=== PATIENT | male | born 1945 | race Caucasian/White ===

== ENCOUNTER → 2018-10-05 10:05 | Outpatient (CLI) | payer OTHER, SELFPAY ==
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
== END ==
PROVIDERS: Visit Provider Physician Assistant
DX: M79.661 Pain in right lower leg (principal)
CPT/HCPCS: 73590

== ENCOUNTER → 2019-03-11 15:50 | Outpatient (CLI) | payer OTHER, SELFPAY ==
[2019-03-11 16:33] LABS: Add Manual Diff / Slide Review NO; Basophils Absolute Auto 0 /uL (0-100); Basophils Percent Auto 0.9 % (0-2); Eosinophils Absolute Auto 200 /uL (0-450); Eosinophils Percent Auto 4.4 % (2-4); Hematocrit 44.2 % (41-53); Hemoglobin 15.2 g/dL (13.5-17.5); Lymphocytes Absolute Auto 1200 /uL (1100-4500); Lymphocytes Percent Auto 22.9 % (25-40); Mean Corpuscular HGB Conc 34.4 % (30-36); Mean Corpuscular Hemoglobin 30.8 PG (26-34); Mean Corpuscular Volume 89.6 fL (80-100); Monocytes Absolute Auto 500 /uL (0-900); Monocytes Percent Auto 10.2 % (3-14); Neutrophils Absolute Auto 3100 /uL (1500-7000); Neutrophils Percent Auto 61.6 % (50-75); Platelet Count 181 X10^3/uL (150-400); Red Blood Cell Count 4.93 X10^6/uL (4.5-5.9); Red Cell Distribution Width 14.7 % (11.6-14.8); White Blood Cell Count 5.1 X10^3/uL (4.5-11.0)
[2019-03-11 17:21] LABS: Alanine Aminotransferase 28 IU/L (21-72); Albumin 3.9 g/dL (3.5-5.0); Albumin Globulin Ratio 1.6 (1.0-2.8); Alkaline Phosphatase 48 U/L (38-126); Aspartate Aminotransferase 24 IU/L (17-59); BUN Creatinine Ratio 18.9 (6-22); Bilirubin Total 0.7 mg/dL (0.2-1.3); Blood Urea Nitrogen 17 mg/dL (9-20); Calcium 9.5 mg/dL (8.4-10.2); Carbon Dioxide 30 mmol/L (22-32); Chloride 101 mmol/L (98-107); Estimated Glomerular Filt Rate > 60.0 mL/min (>60); Globulin 2.5 g/dL (1.7-4.1); Glucose 94 mg/dL (80-110); HEMOLYSIS < 15 (0-50); Sodium 137 mmol/L (137-145); Total Protein 6.4 g/dL (6.3-8.2)
[2019-03-11 17:40] LABS: Free T4, Direct Thyroxine 0.94 ng/dL (0.78-2.19)
[2019-03-11 17:51] LABS: Prostate Specific Antigen 3.78 ng/mL (0.10-4.00)
[2019-03-11 17:53] LABS: Thyroid Stimulating Hormone 3.97 uIU/mL (0.47-4.68)
[2019-03-13 16:13] LABS: Triiodothyronine T3 Total 101 ng/dL (76-181)
== END ==
PROVIDERS: PCP Internal Medicine; Visit Provider Internal Medicine
DX: R97.20 Elevated prostate specific antigen [PSA] (principal); K22.719 Barrett's esophagus with dysplasia, unspecified; R53.83 Other fatigue
CPT/HCPCS: 36415; 80053; 84153; 84439; 84443; 84480; 85025

== ENCOUNTER → 2020-08-23 11:11 | Outpatient (CLI) | payer OTHER, SELFPAY ==
--- NOTE | 2020-08-23 11:14 | DI.RAD.S_ITS ---
PROCEDURE: XR WRIST RT MIN 3V INDICATIONS: WRIST PAIN TECHNIQUE: 4 views of the wrist were acquired. COMPARISON: None. FINDINGS: Bones: No fractures or dislocations. No suspicious bony lesions. Polyarticular joint space narrowing with periarticular osteophytosis, most notably and severe with [id number] contact involving the lateral aspect of the radiocarpal joint. There is mild prominence of the scapholunate interval. Scaphoid view: Intact scaphoid. Soft tissues: No suspicious soft tissue calcifications. IMPRESSION: 1. Joint degeneration, severe involving the lateral radiocarpal joint. 2. Mild prominence of the scapholunate interval and ligamentous injury cannot be excluded. If indicated, MRI could be performed. Dictated by: Solo ZENDEJAS Interpreted: Radha Gaspar MD on 08/23/2020 at 12:26 Approved by: Radha Gaspar M.D. on 08/23/2020 at 15:40
== END ==
PROVIDERS: PCP Family Medicine; Referring Provider Family Medicine; Visit Provider Family Medicine
DX: M25.531 Pain in right wrist (principal); R35.0 Frequency of micturition; Z00.01 Encounter for general adult medical examination with abnormal findings; M19.031 Primary osteoarthritis, right wrist
CPT/HCPCS: 73110

== ENCOUNTER → 2020-08-25 07:08 | Outpatient (CLI) | payer OTHER, SELFPAY ==
[2020-08-25 07:54] LABS: Bacteria Urine None Seen; RBC Urine None Seen (0-5/HPF); WBC Urine None Seen (0-5/HPF)
[2020-08-25 08:29] LABS: Hemoglobin A1C% w Est Avg Glu 5.7 % (4.0-6.0)
[2020-08-25 08:48] LABS: Alanine Aminotransferase 20 IU/L (<50); Albumin 3.6 g/dL (3.5-5.0); Albumin Globulin Ratio 1.3 (1.0-2.8); Alkaline Phosphatase 56 U/L (38-126); Aspartate Aminotransferase 29 IU/L (17-59); BUN Creatinine Ratio 19.3 (6-22); Bilirubin Total 0.6 mg/dL (0.2-1.3); Blood Urea Nitrogen 16 mg/dL (9-20); Calcium 8.8 mg/dL (8.4-10.2); Carbon Dioxide 31 mmol/L (22-32); Chloride 106 mmol/L (98-107); Cholesterol 160 mg/dL (140-199); Estimated Glomerular Filt Rate > 60.0 mL/min (>60); Globulin 2.8 g/dL (1.7-4.1); Glucose 91 mg/dL (80-110); HDL Cholesterol 41 mg/dL (40-60); HEMOLYSIS < 15 (0-50); LDL Cholesterol Calculated 109 mg/dL (<100); Potassium 3.9 mmol/L (3.4-5.1); Sodium 138 mmol/L (137-145); Total Protein 6.4 g/dL (6.3-8.2); Triglycerides 51 mg/dL (35-150)
[2020-08-25 09:23] LABS: Thyroid Stimulating Hormone 2.75 uIU/mL (0.47-4.68)
[2020-08-25 09:29] LABS: Appearance Urine UA CLEAR; Bilirubin Urine UA NEGATIVE (NEGATIVE); Color Urine UA YELLOW; Glucose Urine UA NEGATIVE (Negative); Ketones Urine UA NEGATIVE (NEGATIVE); Leukocyte Esterase Urine UA NEGATIVE (NEGATIVE); Nitrite Urine UA NEGATIVE (Negative); Occult Blood Urine UA NEGATIVE (Negative); Protein Urine UA NEGATIVE (Negative); Urobilinogen Urine UA 0.2 E.U./dL (0.2)
[2020-08-25 09:50] LABS: Amorphous Sediment Urine 1+
[2020-08-25 09:51] LABS: Culture Indicated Urine Cult Not Indicated
== END ==
PROVIDERS: PCP Family Medicine; Referring Provider Family Medicine; Visit Provider Family Medicine
DX: Z00.01 Encounter for general adult medical examination with abnormal findings (principal); M25.531 Pain in right wrist; R35.0 Frequency of micturition; E03.9 Hypothyroidism, unspecified; Z12.5 Encounter for screening for malignant neoplasm of prostate
CPT/HCPCS: 36415; 80053; 80061; 81001; 83036; 84443; G0103

== ENCOUNTER → 2020-09-06 13:38 | Outpatient (CLI) | payer OTHER, SELFPAY ==
[2020-09-06 14:19] LABS: COVID19 -Nasal RAPID Negative (Negative)
== END ==
PROVIDERS: PCP Family Medicine; Visit Provider Physician Assistant
DX: Z11.59 Encounter for screening for other viral diseases (principal)
CPT/HCPCS: 87635

== ENCOUNTER → 2020-09-08 13:33 | Outpatient (CLI) | payer OTHER, SELFPAY ==
--- NOTE | 2020-09-08 14:32 | PM.TREADMILL ---
Cardiac Stress Test Report Referral & Results Date Patient Seen: 09/08/20 Requesting provider: See Alexander Indication: Dyspnea with exertion Rest ECG: Unremarkable Procedure Note: Today following both written and verbal informed consent, the patient was exercised according to a standard Johnnie protocol. The patient exercised for a total of 5 minutes 30 seconds achieving a maximum heart rate of 204. Patient's maximum systolic blood pressure was 250. This was an estimated 7.0 MET's. Patient was hypertensive to start and peaked at a hypertensive level as well. Oxygen saturation did drop and had a minimum of 87% at peak exercise. Patient was reporting 3-4+ dyspnea at this point Patient also with occasional PVCs including ventricular couplets and triplets. Patient also with occasional PACs. At peak exercise patient when in to brief runs of a classic SVT with peak heart rate of about 205. This lasted for less than 10 seconds at a time, I am not convinced patient was symptomatic in any fashion with this. Impression: Patient without evidence of ischemia based on usual ECG criteria Ventricular and supraventricular dysrhythmias as above. This includes SVT as above. Patient did become modestly hypoxic with activity which is not normal. Suggest pulmonary evaluation as well as potentially a longer cardiac catheterization technician looking for more prolonged cardiac dysrhythmias such as longer runs of SVT more significant ventricular dysrhythmias etcetera Discussed with patient prior to leaving as well. Please note: Actual ECG tracings can be found in the PACS system.
== END ==
PROVIDERS: PCP Family Medicine; Referring Provider Family Medicine; Visit Provider Family Medicine
DX: Z00.01 Encounter for general adult medical examination with abnormal findings (principal); R06.09 Other forms of dyspnea; I47.1 Supraventricular tachycardia; M25.531 Pain in right wrist; R35.0 Frequency of micturition
CPT/HCPCS: 93016; 93017; 93018

== ENCOUNTER → 2020-09-20 13:04 | Outpatient (CLI) | payer OTHER, SELFPAY ==
--- NOTE | 2020-10-09 11:08 | PM.CARDMON.1 ---
Billing And Accounting Staff Assistant Report Referral & Results Date Patient Seen: 09/20/20 Requesting provider: See Alexander Indication: Palpitations Duration of monitoring (days): 7 Diary information: There were 2 patient triggered events and 1 patient diary entry Patient triggered events were associated with (within 45 seconds) sinus rhythm, PVCs, and PACs Patient diary event was associated with sinus rhythm and PVCs Data: Minimum heart rate identified was 51 beats per minute at 04:21 on 09/26/2020 Maximum sinus heart rate was 142 beats per minute at 15:02 on 09/26/2020 Maximum overall heart rate was 200 beats per minute at 15:39 on 09/23/2020 during a run of SVT Less than 1% of identified beats or either ventricular supraventricular ectopic in origin which included a 13.2nd run of ventricular trigeminy There were 2 runs of nonsustained polymorphic ventricular tachycardia the longest lasting 5 beats There were 28 episodes of SVT with the fastest being 15 beats at a rate of 200 beats per minute and the longest being the same 15 beat run. Some of these episodes of SVT may be possible atrial tachycardia Impression: 7 day alarm security or surveillance monitor showing rare brief runs of nonsustained ventricular tachycardia as above Also more frequent episodes of SVT/atrial tachycardia No one single dysrhythmia identified with patient's reported symptoms although several possibilities for source of symptoms as above Clinical correlation suggested
== END ==
PROVIDERS: PCP Family Medicine; Referring Provider Family Medicine; Visit Provider Family Medicine
DX: R00.2 Palpitations (principal)
CPT/HCPCS: 0296T; 0298T

== ENCOUNTER → 2020-09-27 09:43 | Outpatient (CLI) | payer OTHER, SELFPAY ==
[2020-09-27 11:30] LABS: COVID19 -Nasal RAPID Negative (Negative)
== END ==
PROVIDERS: PCP Family Medicine; Referring Provider Internal Medicine; Visit Provider Internal Medicine
DX: Z20.828 Contact with and (suspected) exposure to other viral communicable diseases (principal)
CPT/HCPCS: 87635; C9803

== ENCOUNTER → 2020-09-28 12:58 | Outpatient (CLI) | payer OTHER, SELFPAY ==
--- NOTE | 2020-10-02 12:29 | PM.PFT.1 ---
Pulmonary Function Test Referral & Results Date Patient Seen: 09/28/20 Requesting provider: See Alexander Indication: Shortness of breath Results: The spirometry demonstrates an FVC of 2.1 L which is 60% of predicted. The FEV1 was measured at 1.35 L which is 40% of predicted. The FEV1/FVC ratio was 48 which is 65% of predicted. Following the administration of bronchodilator there was 9% improvement in FEV1 and a 16% improvement in FEF 25-75%. Lung volumes show an SVC of 2.92 L which is 60% of predicted. The diffusing capacity was measured at 20.51 which is 58% of predicted. No hemoglobin value was provided, so no correction for potential anemia could be made, if appropriate. The maximum voluntary ventilation was reduced Interpretation: This study demonstrates moderately severe obstructive lung disease based on reduction FEV1 and FEV1/FVC ratio. There is minimal but some evidence of improvement following bronchodilator particularly small airway flow as above although again this is very minimal improvement There is a moderate reduction in lung volumes suggesting restrictive lung disease is present as well There is also a [id number] reduction in diffusing capacity suggesting disease at the capillary alveolar level Altogether this is consistent with a diagnosis of COPD. Clinical correlation suggested
== END ==
PROVIDERS: PCP Family Medicine; Referring Provider Family Medicine; Visit Provider Family Medicine
DX: R06.02 Shortness of breath (principal); J98.8 Other specified respiratory disorders
CPT/HCPCS: 94060; 94726; 94729

== ENCOUNTER → 2021-01-09 11:24 | Outpatient (CLI) | payer OTHER, SELFPAY ==
--- NOTE | 2021-01-09 11:30 | DI.RAD.S_ITS ---
PROCEDURE: XR CHEST 2V INDICATIONS: pulmononlogy TECHNIQUE: 2 views of the chest were acquired. COMPARISON: [facility], , CHEST 2 VIEW, 12/31/2017, 15:58. [facility], , CHEST 1 VIEW, 03/13/2016, 15:59. FINDINGS: Surgical changes and devices: None. Lungs and pleura: Lungs are abnormal with large lung volumes and a small degree of linear stranding at the left lung base present on prior 2016 study and therefore considered minimal scarring.. No pleural effusions or pneumothorax. Mediastinum: Mediastinal contours are normal. Heart size is normal. Bones and chest wall: No suspicious bony abnormalities. Soft tissues appear unremarkable. IMPRESSION: Relatively large lung volumes, as has been previously the case, apparent pulmonary hyperexpansion and likelihood of COPD. No pneumonia or neoplasm found. Chronic mild lung scarring left lung base laterally. Dictated by: Philippe Munoz M.D. on 01/09/2021 at 12:11 Approved by: Philippe Munoz M.D. on 01/09/2021 at 12:12
== END ==
PROVIDERS: PCP Family Medicine; Referring Provider Internal Medicine Critical Care Medicine; Visit Provider Internal Medicine Critical Care Medicine
DX: J44.9 Chronic obstructive pulmonary disease, unspecified (principal); R94.2 Abnormal results of pulmonary function studies
CPT/HCPCS: 71046

== ENCOUNTER → 2021-02-07 15:50 | Outpatient (CLI) | payer OTHER, SELFPAY ==
[2021-02-07 16:50] LABS: COVID19 -Nasal RAPID Negative (Negative)
== END ==
PROVIDERS: PCP Family Medicine; Referring Provider Internal Medicine Critical Care Medicine; Visit Provider Internal Medicine Critical Care Medicine
DX: J44.9 Chronic obstructive pulmonary disease, unspecified (principal); Z20.822 Contact with and (suspected) exposure to COVID-19
CPT/HCPCS: 87635; C9803

== ENCOUNTER → 2021-02-08 09:01 | Outpatient (CLI) | payer OTHER, SELFPAY ==
--- NOTE | 2021-02-14 09:36 | PM.PFT.1 ---
Pulmonary Function Test Referral & Results Date Patient Seen: 02/08/21 Requesting provider: Carlo Shepherd Results: The spirometry demonstrates an FVC of 3.06 L which is 66% of predicted. The FEV1 was measured at 1.63 L which is 40% of predicted. The FEV1/FVC ratio was 53 which is 72% of predicted. The diffusing capacity was measured at 22.62 which is 64% of predicted. No hemoglobin value was provided, so no correction for potential anemia could be made, if appropriate. Interpretation: This study demonstrates moderately severe obstructive lung disease based on reduction FEV1 There is also disease at the capillary alveolar level based on reduction in diffusing capacity as above Compared to PFTs performed in September 2020, current spirometry is essentially unchanged Diffusing capacity is essentially unchanged as well compared to prior study Clinical correlation suggested
== END ==
PROVIDERS: PCP Family Medicine; Referring Provider Internal Medicine Critical Care Medicine; Visit Provider Internal Medicine Critical Care Medicine
DX: J44.9 Chronic obstructive pulmonary disease, unspecified (principal)
CPT/HCPCS: 94010; 94729

== ENCOUNTER → 2021-03-06 13:38 | Outpatient (CLI) | payer OTHER, SELFPAY ==
--- NOTE | 2021-03-06 | DI.ECHO.S_ITS ---
[facility] +---------+ : : [address] [place] : : : : [id number] : : : : Phone: [phone]+ Echocardiogram Report + + :Name: JUANJOSE GRECO Study Date: 03/06/2021 Height: 72 in : :[facility] ReadingLocation: Weight: 165 lb : : Gender: Male BSA: 2.0 m2 : :: 1945 Age: 75 yrs BP: 165/88 mmHg: :Reason For Study: ABNORMAL PULMONARY FUNCTION TEST : :Ordering Physician: GRICEL, : :MIRNA Espinosa Performed By: Janine Claros : :Referring: MIRNA MONSALVE : + + Interpretation Summary Normal sinus rhythm. Normal LV size; mild concentric LVH; normal wall motion and LV systolic function. EF is 60-65%. Normal chamber sizes. Aortic valve leaflets are slightly calcified with mild-moderate associated aortic regurgitation. Otherwise no significant valvular abnormalities. No prior study available for comparison. Procedure: A two-dimensional transthoracic echocardiogram with color flow and Doppler was performed. The study quality was technically adequate. There is no prior echocardiogram noted for this patient. The patient was in sinus rhythm with heart rates between 66-85 bpm during the exam. Left Ventricle: The left ventricle is normal in size. There is mild concentric left ventricular hypertrophy. The ejection fraction is estimated to be 60-65%. Right Ventricle: The right ventricle is normal in size and function. Atria: The left atrial size is normal. Right atrial size is normal. There is no Doppler evidence for an interatrial shunt. Mitral Valve: The mitral valve leaflets appear borderline thickened, but open well. There is borderline mitral valve prolapse. There is trace mitral regurgitation. Aortic Valve: The aortic valve is slightly calcified. The aortic valve is trileaflet. The aortic valve opens well. There is no aortic valve stenosis. There is mild to moderate aortic regurgitation. Tricuspid Valve: The tricuspid valve is normal in structure and function. There is trace tricuspid regurgitation. Pulmonary artery pressures cannot be estimated because of the lack of a measurable TR jet velocity but the IVC suggests a CVP of around 3 mmHg. Pulmonic Valve: The pulmonic valve leaflets are thin and pliable; valve motion is normal. There is mild pulmonic regurgitation. Great Vessels: The aortic root is normal size. The ascending aorta is mild- moderately enlarged. The IVC is of normal diameter and collapses greater than 50% with a sniff. This suggests a low right atrial pressure of 3 mm Hg. Pericardium/ Pleura There is no pericardial effusion. There is no pleural effusion. MMode/2D Measurements & Calculations LVIDd: 5.0 cm LVOT diam: 2.2 cm LVIDs: 3.4 cm Ao root diam: 3.6 cm FS: 32.8 % asc Aorta Diam: 3.9 cm EPSS: 0.69 cm Ao Arch Diam (Prox Trans): 2.9 cm IVSd: 1.1 cm LVPWd: 1.1 cm LV szymanski. diameter/BSA (cm/m^2): 2.6 LV sys. diameter/BSA (cm/m^2): 1.7 LA A2 area: 16.9 cm2 RA long axis: 4.8 cm LA A4 area: 16.2 cm2 RA area: 14.9 cm2 LA length (vol): 4.4 cm RA vol: 39.0 ml LA vol: 52.2 ml RA : 19.9 ml/m2 LA vol index: 26.6 ml/m2 IVC diam: 1.7 cm RVD1 (basal): 3.6 cm TAPSE: 1.8 cm Doppler Measurements & Calculations Ao V2 max: 153.4 cm/sec LVOT Max Virginie: 106.1 cm/sec Ao V2 mean: 98.0 cm/sec LV V1 max P.5 mmHg Ao max P.4 mmHg LV V1 VTI: 21.5 cm Ao mean P.6 mmHg TERESO(I,D): 3.1 cm2 Ao V2 VTI: 26.5 cm TERESO(V,D): 2.7 cm2 sev ratio: 0.81 TERESO indexed to BSA (cm^2/m^2): 1.6 AI P1/2t: 420.5 msec AI dec slope: 315.1 cm/sec2 MV E max virginie: 52.7 cm/sec TR max virginie: 257.2 cm/sec MV A max virginie: 65.7 cm/sec TR max P.5 mmHg MV E/A: 0.80 PA pr(Accel): 37.9 mmHg Med Peak E' Virginie: 4.4 cm/sec E/E' med: 12.0 Lat Peak E' Virginie: 4.9 cm/sec E/E' lat: 10.8 E/e' average: 11.4 MV dec time: 0.22 sec SV(LVOT): 83.1 ml Electronically signed by: Esme Leija M.D. on [place] Physician:03/07/2021 01:07 AM
== END ==
PROVIDERS: PCP Family Medicine; Referring Provider Internal Medicine Critical Care Medicine; Visit Provider Internal Medicine Critical Care Medicine
DX: R94.2 Abnormal results of pulmonary function studies (principal); I35.1 Nonrheumatic aortic (valve) insufficiency; I70.0 Atherosclerosis of aorta
CPT/HCPCS: 93306

== ENCOUNTER → 2021-06-07 12:04 | Outpatient (CLI) | payer OTHER, SELFPAY ==
--- NOTE | 2021-06-07 | DI.CT.S_ITS ---
PROCEDURE: CT CHEST W CON INDICATIONS: Chronic obstructive pulmonary disease, unspecified TECHNIQUE: After the administration of intravenous contrast, 5 mm thick sections acquired from the pulmonary apices to the posterior costophrenic angles. 1 mm axial lung, 5 mm thick coronal and sagittal reformats and 7 mm axial MIP were acquired. For radiation dose reduction, the following was used: automated exposure control, adjustment of mA and/or kV according to patient size. COMPARISON: [facility], CR, XR CHEST 2V, 01/09/2021, 11:38. FINDINGS: Image quality: Excellent. Lungs and pleura: There is a 4 mm nodule in the left lower lobe (series 3, image 224). Mild hyperinflation and bronchial wall thickening bilaterally consistent with bronchitis. Right middle lobe, lingula and bilateral lower lobe scars and atelectasis. No acute air space opacities. No pleural effusions or pneumothorax. Central and peripheral airways are patent and normal in caliber. Mediastinum: Heart size is normal. Mild coronary artery calcification. No pericardial effusion. There is a 1 cm right paratracheal lymph node and a 1 cm subcarinal lymph node. Thoracic aorta and central pulmonary arteries are normal in size. Esophagus is normal in caliber. No hiatal hernia. Bones and chest wall: No suspicious bony lesions. No vertebral body compression fractures. No axillary or supraclavicular adenopathy by size criteria. Thyroid gland is normal . Abdomen: Bilateral exophytic nodules in the superior pole of kidneys. Mild hepatic steatosis.. IMPRESSION: 1. A 4 mm nodule in the left lower lobe. Please see enclosed follow-up recommendation. 2. Bronchitis. 3. Borderline enlarged mediastinal lymph nodes are most likely reactive. Fleischner Society criteria for SOLID lung nodule followup. Nodule size (mm)Low-risk patientHigh-risk patient?4No follow-up neededFollow-up at 12 mo; if no change, no further follow-up>[id number] CT at 12 mo; if no change, no further follow-up needed.Initial follow-up CT at 6-12 mo, then 18-24 mo if no change. >6-8Initial follow-up CT at 6-12 mo, then 18-24 mo if no change. Initial follow-up CT at 3-6 mo, then 9-12 mo and 24 mo if no change. >8Follow-up CT at 3, 9, 24 mo. Or PET and/or biopsy.Same as for low-risk pts. Dictated by: Farshad Mulligan M.D. on 06/07/2021 at 14:28 Approved by: aFrshad Mulligan M.D. on 06/07/2021 at 15:54
[2021-06-07 12:51] LABS: Estimated Glomerular Filt Rate > 60.0 mL/min (>60)
== END ==
PROVIDERS: PCP Family Medicine; Referring Provider Internal Medicine Critical Care Medicine; Visit Provider Internal Medicine Critical Care Medicine
DX: J44.9 Chronic obstructive pulmonary disease, unspecified (principal); R94.2 Abnormal results of pulmonary function studies; R91.1 Solitary pulmonary nodule
CPT/HCPCS: 36415; 71260; 82565; Q9967

== ENCOUNTER 2021-12-09 08:17 | Emergency (ER) | payer OTHER, SELFPAY ==
[2021-12-09] VITALS (18 sets, daily range): BP systolic 166–214; BP diastolic 79–103; PULSE 73–97; RESP 13–26; TEMP 36.6; O2SAT 92–96; BMI 23.0
--- NOTE | 2021-12-09 08:28 | ED_ITS ---
HPI - SOB/Dyspnea General Chief Complaint: Shortness of Breath/Dyspnea Stated Complaint: coughing has COPD Time Seen by Provider: 12/09/21 08:28 Source: patient Mode of arrival: Ambulatory Limitations: no limitations History of Present Illness HPI Narrative: This is a 76-year-old male with known history of COPD who states he uses albuterol and a daily maintenance inhaler. He denies any other medical issues. He does see a curriculum assistant principal Dr. Shepherd in telling him. He states they suspect that his lungs have been scarred from a soft diet is but he did not have asthma as a child. He was nonsmoker. Patient states for the last 4-5 days he has had increasing wheezing and shortness of breath. He denies any fevers. He has had a cough with some yellow productive sputum. He denies any chest pain or pressure. He denies any nausea or vomiting. No diarrhea constipation, no urinary symptoms. No swelling his lower extremities. He states he has had EKGs and evaluation from cardiac standpoint been told that they have not found any cardiac issues. He has had knee surgery remotely but no cardiac stents or other surgeries. He has had vaccination and booster for coronavirus. He was exposed to someone with a viral illness about a week ago. He does not know if they had coronavirus. He has been using his albuterol at home every 4 hours with mild improvement but does not return to baseline. No tobacco, or alcohol, occasional edible THC but no other illicit. His primary care is Dr. Alexander. Related Data Home Medications Medication Instructions Recorded Confirmed cholecalciferol (vitamin D3) 25 1,000 unit PO QDAY #0 02/25/17 01/26/21 mcg (1,000 unit) tablet (Vitamin D3) Previous Rx's Medication Instructions Recorded albuterol sulfate 90 mcg/actuation 2 puff INHALATION Q6H PRN #6.7 g 10/04/20 aerosol inhaler tiotropium bromide 18 mcg capsule 1 cap INHALATION DAILY #180 inh 10/04/20 with inhalation device (Spiriva with HandiHaler) prednisone 20 mg tablet 40 mg PO DAILY #8 tab 12/09/21 Allergies Allergy/AdvReac Type Severity Reaction Status Date / Time gluten Allergy Unknown Verified 01/26/21 09:39 alcohol AdvReac Unknown Verified 01/26/21 09:39 Milk Containing Products AdvReac Unknown Verified 01/26/21 09:39 Review of Systems Review of Systems ROS Unobtainable: All systems reviewed & are unremarkable except as noted in HPI and below Patient History Medical History Arthritis of right wrist Chronic venous stasis Colitis (~2008) Fibromyalgia (~2016) Hepatitis (~1979) Hypothyroidism Irritable bowel syndrome (~2008) Shortness of breath SVT (supraventricular tachycardia) Tinnitus (~2009) Varicose veins of both lower extremities without ulcer or inflammation Surgical History Anesthesia Status post left knee replacement (~2012) Status post right knee replacement (~2010) Family History Father History of heart disease Social History Smoking Status: Never smoker Smoking Status: Never smoker Exam Narrative Exam Narrative: GEN: well nourished, well appearing male, alert and oriented x 3, patient appears to be in mild distress. HEENT: Atraumatic, pupils are equal round reactive to light, extraocular movements are intact, nares are clear. HEART: Regular rate and rhythm without murmur, clicks, rubs. No JVD. No swelling bilateral lower extremities. LUNGS:Lungs equal air movement bilaterally, positive wheezes bilateral bases, no rales, crackles, chest moves symmetrically, mild tachypnea. Speaks in full sentences. ABD:bowel sounds normal, soft, non-tender, no guarding, rebound, rigidity, no masses noted, no hepatosplenomegaly MSCL: Non-tender, no muscle atrophy, full range of motion, normal gait NEURO:CN 2-12 intact, sensation normal SKIN: No rash, erythema other skin changes noted. Initial Vital Signs Initial Vital Signs: Vital Signs Pulse Rate 80 12/09/21 08:26 Respiratory Rate 26 H 12/09/21 08:26 Blood Pressure 198/95 H 12/09/21 08:26 Pulse Oximetry 96 12/09/21 08:26 Course Orders Ordered: Discontinued Medications Albuterol (Albuterol 2.5 Mg/3 Ml Neb (Adult)) 10 mg INH NOW ONE Stop: 12/09/21 08:34 Last Admin: 12/09/21 08:48 Dose: 10 mg Documented by: CTR.TVO Albuterol/Ipratropium (Albuterol/Ipratropium 3 Ml Ampul) 3 ml INH NOW ONE Stop: 12/09/21 08:35 Last Admin: 12/09/21 08:48 Dose: 3 ml Documented by: CTR.TVO Methylprednisolone (Methylprednisolone 125 Mg/2 Ml Vial) 125 mg IV NOW ONE Stop: 12/09/21 08:38 Last Admin: 12/09/21 08:57 Dose: 125 mg Documented by: PETERSON Reevaluation(s) Reevaluation #1: patient had albuterol 10mg still has some mild wheeze but feels significantly improved and has improved aeration with decrease in his extra Vicente wheeze. Time: 09:28 Reevaluation #2: Patient feels significantly better. Reviewed his findings today blood pressures been improving. Patient does have a curriculum assistant principal so discussed that he has recurrent flares they can work on action plan as needed. Time: 10:38 Vital Signs Vital signs: Vital Signs - 8 hr 12/09/21 08:26 12/09/21 08:29 12/09/21 08:30 Temperature 97.9 F Pulse Rate 80 78 74 Respiratory Rate 26 H 21 19 Blood Pressure 198/95 H 214/101 H 214/101 H Pulse Oximetry 96 95 95 12/09/21 08:42 12/09/21 08:45 12/09/21 08:51 Temperature Pulse Rate 73 75 79 Respiratory Rate 26 H 23 26 H Blood Pressure 196/88 H 179/82 H Pulse Oximetry 93 94 94 12/09/21 08:55 12/09/21 09:00 12/09/21 09:01 Temperature Pulse Rate 82 95 H Respiratory Rate 16 20 13 Blood Pressure 176/91 H 212/102 H 206/100 H Pulse Oximetry 92 93 92 12/09/21 09:02 12/09/21 09:06 12/09/21 09:15 Temperature Pulse Rate 94 H 85 97 H Respiratory Rate 19 Blood Pressure 197/103 H 187/97 H Pulse Oximetry 92 93 12/09/21 09:30 12/09/21 09:31 12/09/21 09:45 Temperature Pulse Rate 88 90 85 Respiratory Rate 23 Blood Pressure 181/79 H 175/81 H Pulse Oximetry 95 93 94 MDM - SOB/Dyspnea Lab Data Result diagrams: 12/09/21 08:30 12/09/21 08:30 Labs: Lab Results 12/09/21 12/09/21 12/09/21 Range/Units 08:24 08:30 08:30 WBC 4.9 (4.5-11.0) X10^3/uL RBC 5.31 (4.5-5.9) X10^6/uL Hgb 16.1 (13.5-17.5) g/dL Hct 47.8 (41-53) % MCV 89.9 (80-100) fL MCH 30.2 (26-34) PG MCHC 33.6 (30-36) % RDW 14.4 (11.6-14.8) % Plt Count 177 (150-400) X10^3/uL Neut % (Auto) 58.7 (50-75) % Lymph % (Auto) 21.4 L (25-40) % Juncos % (Auto) 10.4 (3-14) % Eos % (Auto) 8.4 H (2-4) % Baso % (Auto) 1.1 (0-2) % Neut # (Auto) 2900 (2017-2672) /uL Lymph # (Auto) 1000 L (0855-3695) /uL Juncos # (Auto) 500 (0-900) /uL Eos # (Auto) 400 (0-450) /uL Baso # (Auto) 100 (0-100) /uL Sodium (137-145) mmol/L Potassium (3.4-5.1) mmol/L Chloride (98-107) mmol/L Carbon Dioxide (22-32) mmol/L BUN (9-20) mg/dL Creatinine (0.66-1.25) mg/dL Estimated GFR (>60) mL/min BUN/Creatinine Ratio (6-22) Glucose (80-110) mg/dL Lactate (0.7-2.1) mmol/L Calcium (8.4-10.2) mg/dL Magnesium (1.6-2.3) mg/dL Total Creatine Kinase (55-170) U/L CK-MB (CK-2) (<2.37) ng/mL CK-MB (CK-2) Rel Index (1.5-5.0) % Troponin I (0.01-0.034) ng/mL NT-Pro-B Natriuret Pep 100 (<450) pg/mL SARS-CoV-2 (PCR) Negative (Negative) 12/09/21 12/09/21 Range/Units 08:30 08:30 WBC (4.5-11.0) X10^3/uL RBC (4.5-5.9) X10^6/uL Hgb (13.5-17.5) g/dL Hct (41-53) % MCV (80-100) fL MCH (26-34) PG MCHC (30-36) % RDW (11.6-14.8) % Plt Count (150-400) X10^3/uL Neut % (Auto) (50-75) % Lymph % (Auto) (25-40) % Juncos % (Auto) (3-14) % Eos % (Auto) (2-4) % Baso % (Auto) (0-2) % Neut # (Auto) (7518-9306) /uL Lymph # (Auto) (5150-8378) /uL Juncos # (Auto) (0-900) /uL Eos # (Auto) (0-450) /uL Baso # (Auto) (0-100) /uL Sodium 138 (137-145) mmol/L Potassium 4.0 (3.4-5.1) mmol/L Chloride 103 (98-107) mmol/L Carbon Dioxide 30 (22-32) mmol/L BUN 12 (9-20) mg/dL Creatinine 0.85 (0.66-1.25) mg/dL Estimated GFR > 60.0 (>60) mL/min BUN/Creatinine Ratio 14.1 (6-22) Glucose 138 H (80-110) mg/dL Lactate 1.8 (0.7-2.1) mmol/L Calcium 8.8 (8.4-10.2) mg/dL Magnesium 2.0 (1.6-2.3) mg/dL Total Creatine Kinase 142 (55-170) U/L CK-MB (CK-2) 2.30 (<2.37) ng/mL CK-MB (CK-2) Rel Index 1.6 (1.5-5.0) % Troponin I < 0.012 (0.01-0.034) ng/mL NT-Pro-B Natriuret Pep (<450) pg/mL SARS-CoV-2 (PCR) (Negative) Imaging Data Chest x-ray: Radiologist's Impression: Arjun Sanders??76??M??1945 ? Allergy/Adv: gluten, alcohol, Milk Containing Products (More??) Close Chest X-Ray (Signed) Sachin Escobar - 12/09/[address] (Signed) Sukhjinder Mulligan - 06/07/21 Echocardiogram Ultrasound (Signed) Esme Leija - 03/06/21 Chest X-Ray (Signed) Philippe Munoz - 01/09/21 Wrist X-Ray (Signed) ChasityRadha - 08/23/20 Tibia/Fibula X-Ray (Signed) Kannan Levin - 10/05/18 Launch?[place] [address] XRay Report Signed Patient: Arjun Sanders MR#: [id number] : 1945 Acct:[id number] Age/Sex: 76 / M Date of Service: 12/09/21 Loc: ED Accession Number: [id number] ?? Procedure: XR chest 1V Ordering Provider: Mayuri Hopson D.O. PROCEDURE:? XR CHEST 1V ? INDICATIONS:? sob, COPD hx. ? TECHNIQUE:? One view of the chest was acquired.? ? COMPARISON:? [facility], CT, CT CHEST W CON, 06/07/2021, 13:00.? [facility], CR, XR CHEST 2V, 01/09/2021, 11:38. ? FINDINGS:? ? Surgical changes and devices:? None.? ? Lungs and pleura:? Lungs are clear.? No pleural effusions or pneumothorax.? ? Mediastinum:? Mediastinal contours appear normal.? Heart size is normal.? ? Bones and chest wall:? No suspicious bony lesions.? Overlying soft tissues appear unremarkable.? ? IMPRESSION:? No evidence acute pulmonary process. ? ? ? Dictated by: Sachin Escobar M.D. on 12/09/2021 at 8:54 ? ? Approved by: Sachin Escobar M.D. on 12/09/2021 at 8:55? ECG Data Attestation: I personally reviewed and interpreted this ECG as follows: Prior ECG tracings: not available for review Interpretation: Sinus rhythm left anterior fascicular block. Rate of 69, DE 182 QRS of [address]TC [address] No acute ST elevation or depression noted. No priors available. MDM Narrative Medical decision making narrative: This is a 76-year-old male with acute exacerbation of COPD. Patient a viral illness versus infection he has had exposure he is immunized for coronavirus but was swab today. EKG shows no acute changes patient is quite hypertensive initially upon arrival. Chest x-ray, lab work show no acute changes, EKG shows no significant changes patient has wheeze on exam with known history of COPD follows with pulmonology. Suspect COPD flare plan to start on oral prednisone, possible antihistamine and follow-up. Discharge Plan Departure Patient Disposition: Home Clinical Impression: Acute exacerbation of chronic obstructive pulmonary disease Instructions: DI for Chronic Obstructive Pulmonary Disease Activity Restrictions/Additional Instructions: Follow-up with your physician or pulmonology for recheck. Monitor your blood pressure, if persistently high share this information with your physician. Take oral steroids until completely gone. You can start oral steroids tomorrow. Continue your daily maintenance inhaler make sure to use this daily as it is more effective when taken on a regular basis. You may continue with albuterol 2 puffs every 4 hours as needed. It may be helpful to take a Claritin or loratadine once daily. This is available [id number]. Prescription sent to [facility] in [place]. Please return for fevers, new worsening chest pain, shortness of breath if you require your albuterol more than every 4 hours, lightheadedness or passing out, new swelling in her extremities or other new or concerning symptoms. Prescriptions: New prednisone 20 mg tablet 40 mg PO DAILY Qty: 8 0RF No Action cholecalciferol (vitamin D3) [Vitamin D3] 1,000 UNIT tablet 1,000 unit PO QDAY Qty: 0 0RF albuterol sulfate 90 mcg/actuation HFA aerosol inhaler 2 puff inhalation Q6H PRN (Reason: shortness of breath or wheezing) Qty: 6.7 0RF Spiriva with HandiHaler 18 mcg capsule, w/inhalation device 1 cap inhalation DAILY Qty: 180 0RF Rx Instructions: puncture 1 cap using device; one dose = 2 inhalations Referrals: See Alexander MD [Primary Care Provider] -
--- NOTE | 2021-12-09 08:38 | DI.RAD.S_ITS ---
PROCEDURE: XR CHEST 1V INDICATIONS: sob, COPD hx. TECHNIQUE: One view of the chest was acquired. COMPARISON: [facility], CT, CT CHEST W CON, 06/07/2021, 13:00. [facility], CR, XR CHEST 2V, 01/09/2021, 11:38. FINDINGS: Surgical changes and devices: None. Lungs and pleura: Lungs are clear. No pleural effusions or pneumothorax. Mediastinum: Mediastinal contours appear normal. Heart size is normal. Bones and chest wall: No suspicious bony lesions. Overlying soft tissues appear unremarkable. IMPRESSION: No evidence acute pulmonary process. Dictated by: Sachin Escobar M.D. on 12/09/2021 at 8:54 Approved by: Sachin Escobar M.D. on 12/09/2021 at 8:55
[2021-12-09] MEDS: ALBUTEROL 2.5 MG/3 ML NEB (ADULT) 10 MG INH (08:48)
[2021-12-09] MEDS: ALBUTEROL/IPRATROPIUM 3 ML AMPUL INH (08:48)
[2021-12-09] MEDS: methylPREDNISolone 125 MG/2 ML VIAL IV (08:57)
[2021-12-09 08:58] LABS: Lactate (Lactic Acid) 1.8 mmol/L (0.7-2.1)
[2021-12-09 08:59] LABS: BUN Creatinine Ratio 14.1 (6-22); Blood Urea Nitrogen 12 mg/dL (9-20); Calcium 8.8 mg/dL (8.4-10.2); Carbon Dioxide 30 mmol/L (22-32); Chloride 103 mmol/L (98-107); Creatine Kinase 142 U/L (55-170); Estimated Glomerular Filt Rate > 60.0 mL/min (>60); Glucose 138 mg/dL (80-110); HEMOLYSIS < 15 (0-50); Sodium 138 mmol/L (137-145)
[2021-12-09 09:08] LABS: NT-proBNP (BNP-Adult 18+) 100 pg/mL (<450)
[2021-12-09 09:10] LABS: Troponin I < 0.012 ng/mL (0.01-0.034)
[2021-12-09 09:13] LABS: Add Manual Diff / Slide Review NO; Basophils Absolute Auto 100 /uL (0-100); Basophils Percent Auto 1.1 % (0-2); CKMB % Relative Index 1.6 % (1.5-5.0); Eosinophils Absolute Auto 400 /uL (0-450); Eosinophils Percent Auto 8.4 % (2-4); Hematocrit 47.8 % (41-53); Hemoglobin 16.1 g/dL (13.5-17.5); Lymphocytes Absolute Auto 1000 /uL (1100-4500); Lymphocytes Percent Auto 21.4 % (25-40); Mean Corpuscular HGB Conc 33.6 % (30-36); Mean Corpuscular Hemoglobin 30.2 PG (26-34); Mean Corpuscular Volume 89.9 fL (80-100); Monocytes Absolute Auto 500 /uL (0-900); Monocytes Percent Auto 10.4 % (3-14); Neutrophils Absolute Auto 2900 /uL (1500-7000); Neutrophils Percent Auto 58.7 % (50-75); Platelet Count 177 X10^3/uL (150-400); Red Blood Cell Count 5.31 X10^6/uL (4.5-5.9); Red Cell Distribution Width 14.4 % (11.6-14.8); White Blood Cell Count 4.9 X10^3/uL (4.5-11.0)
[2021-12-09 09:22] LABS: COVID19 -Nasal RAPID Negative (Negative)
== END 2021-12-09 10:55 | disposition home or self-care (01) ==
PROVIDERS: Emergency Provider Emergency Medicine; PCP Family Medicine
DX: J44.1 Chronic obstructive pulmonary disease with (acute) exacerbation (principal); Z79.899 Other long term (current) drug therapy; Z20.822 Contact with and (suspected) exposure to COVID-19
CPT/HCPCS: 36415; 71045; 80048; 82550; 82553; 83605; 83735; 83880; 84484; 85025; 87635; 93005; 94640; 96374; 99284; C9803; J2930; J7613

== ENCOUNTER → 2022-03-21 07:55 | Outpatient (CLI) | payer OTHER, SELFPAY ==
[2022-03-21 08:23] LABS: Hemoglobin A1C% w Est Avg Glu 5.8 % (4.0-6.0)
[2022-03-21 08:36] LABS: Alanine Aminotransferase 21 IU/L (<50); Albumin 3.8 g/dL (3.5-5.0); Albumin Globulin Ratio 1.5 (1.0-2.8); Alkaline Phosphatase 58 U/L (38-126); Aspartate Aminotransferase 30 IU/L (17-59); BUN Creatinine Ratio 18.1 (6-22); Bilirubin Total 0.5 mg/dL (0.2-1.3); Blood Urea Nitrogen 17 mg/dL (9-20); Calcium 8.7 mg/dL (8.4-10.2); Carbon Dioxide 32 mmol/L (22-32); Chloride 105 mmol/L (98-107); Cholesterol 156 mg/dL (140-199); Estimated Glomerular Filt Rate > 60 mL/min (>60); Globulin 2.6 g/dL (1.7-4.1); Glucose 90 mg/dL (80-110); HDL Cholesterol 51 mg/dL (40-60); HEMOLYSIS < 15 (0-50); LDL Cholesterol Calculated 97 mg/dL (<100); Potassium 4.1 mmol/L (3.4-5.1); Sodium 140 mmol/L (137-145); Total Protein 6.4 g/dL (6.3-8.2); Triglycerides 42 mg/dL (35-150)
[2022-03-21 09:03] LABS: TSH w/ Reflex to FT4 7.34 uIU/mL (0.47-4.68)
[2022-03-21 09:04] LABS: Prostate Specific Antigen Scrn 5.75 ng/mL (0.1-4.0)
[2022-03-21 09:29] LABS: Free T4, Direct Thyroxine 1.12 ng/dL (0.78-2.19)
[2022-03-21 19:05] LABS: Hep C Virus Ab w/Reflex Quant NEGATIVE s/c (NEGATIVE)
== END ==
PROVIDERS: PCP Family Medicine; Referring Provider Family Medicine; Visit Provider Family Medicine
DX: E03.9 Hypothyroidism, unspecified (principal); J44.9 Chronic obstructive pulmonary disease, unspecified; K22.70 Barrett's esophagus without dysplasia; R73.9 Hyperglycemia, unspecified; Z12.5 Encounter for screening for malignant neoplasm of prostate
CPT/HCPCS: 36415; 80053; 80061; 83036; 84439; 84443; 86803; G0103

== ENCOUNTER → 2022-04-24 09:39 | Outpatient (CLI) | payer OTHER, SELFPAY ==
[2022-04-24 11:52] LABS: Erythrocyte Sedimentation Rate 2 MM/HR (0-15)
[2022-04-24 12:11] LABS: C-Reactive Protein Quant < 0.5 mg/dL (<1.0)
== END ==
PROVIDERS: PCP Family Medicine; Referring Provider Ophthalmology; Visit Provider Ophthalmology
DX: H49.11 Fourth [trochlear] nerve palsy, right eye (principal)
CPT/HCPCS: 36415; 85651; 86140

== ENCOUNTER → 2022-05-23 14:00 | Outpatient (CLI) | payer OTHER, SELFPAY ==
[2022-05-23 16:21] LABS: Prostate Specific Antigen Scrn 5.16 ng/mL (0.1-4.0); TSH w/ Reflex to FT4 1.63 uIU/mL (0.47-4.68)
== END ==
PROVIDERS: PCP Family Medicine; Referring Provider Family Medicine; Visit Provider Family Medicine
DX: E03.9 Hypothyroidism, unspecified (principal); I47.1 Supraventricular tachycardia; Z12.5 Encounter for screening for malignant neoplasm of prostate
CPT/HCPCS: 36415; 84443; G0103

== ENCOUNTER → 2022-08-21 12:11 | Outpatient (CLI) | payer OTHER, SELFPAY | PROVIDERS: PCP Family Medicine; Visit Provider Physician Assistant Medical | DX: J02.9 Acute pharyngitis, unspecified (principal) | CPT/HCPCS: 87070 ==

== ENCOUNTER → 2022-11-01 09:51 | Outpatient (CLI) | payer OTHER, SELFPAY ==
[2022-11-01 11:26] LABS: Influenza A - CEPHEID Flu A NEGATIVE (NEGATIVE); Influenza B - CEPHEID Flu B NEGATIVE (NEGATIVE)
[2022-11-01 11:32] LABS: COVID-19 CEPHEID 4-PLEX PCR Negative (Negative)
[2022-11-01 12:11] LABS: Prostate Specific Antigen Scrn 4.16 ng/mL (0.1-4.0)
== END ==
PROVIDERS: PCP Family Medicine; Referring Provider Family Medicine; Visit Provider Family Medicine
DX: Z12.5 Encounter for screening for malignant neoplasm of prostate (principal); Z20.822 Contact with and (suspected) exposure to COVID-19
CPT/HCPCS: 0240U; 36415; G0103

== ENCOUNTER → 2023-05-27 06:58 | Outpatient (CLI) | payer OTHER, SELFPAY ==
[2023-05-27 08:46] LABS: Add Manual Diff / Slide Review NO; Basophils Absolute Auto 0 /uL (0-100); Basophils Percent Auto 0.9 % (0-2); Eosinophils Absolute Auto 400 /uL (0-450); Eosinophils Percent Auto 7.2 % (2-4); Hematocrit 45.3 % (41-53); Hemoglobin 15.5 g/dL (13.5-17.5); Lymphocytes Absolute Auto 1000 /uL (1100-4500); Lymphocytes Percent Auto 19.4 % (25-40); Mean Corpuscular HGB Conc 34.1 % (30-36); Mean Corpuscular Hemoglobin 31.2 PG (26-34); Mean Corpuscular Volume 91.4 fL (80-100); Monocytes Absolute Auto 700 /uL (0-900); Monocytes Percent Auto 12.7 % (3-14); Neutrophils Absolute Auto 3200 /uL (1500-7000); Neutrophils Percent Auto 59.8 % (50-75); Platelet Count 178 X10^3/uL (150-400); Red Blood Cell Count 4.96 X10^6/uL (4.5-5.9); Red Cell Distribution Width 14.5 % (11.6-14.8); White Blood Cell Count 5.4 X10^3/uL (4.5-11.0)
[2023-05-27 09:01] LABS: Hemoglobin A1C% w Est Avg Glu 5.4 % (4.0-6.0)
[2023-05-27 09:21] LABS: Alanine Aminotransferase 26 IU/L (<50); Albumin 3.8 g/dL (3.5-5.0); Albumin Globulin Ratio 1.5 (1.0-2.8); Alkaline Phosphatase 48 U/L (38-126); Aspartate Aminotransferase 29 IU/L (17-59); BUN Creatinine Ratio 18.6 (6-22); Bilirubin Total 0.8 mg/dL (0.2-1.3); Blood Urea Nitrogen 18 mg/dL (9-20); Calcium 9.7 mg/dL (8.4-10.2); Carbon Dioxide 29 mmol/L (22-32); Chloride 99 mmol/L (98-107); Cholesterol 165 mg/dL (140-199); Estimated Glomerular Filt Rate > 60 mL/min (>60); Globulin 2.5 g/dL (1.7-4.1); Glucose 89 mg/dL (80-110); HDL Cholesterol 45 mg/dL (40-60); HEMOLYSIS < 15 (0-50); LDL Cholesterol Calculated 110 mg/dL (<100); Sodium 135 mmol/L (137-145); Total Protein 6.3 g/dL (6.3-8.2); Triglycerides 49 mg/dL (35-150)
[2023-05-27 09:49] LABS: TSH w/ Reflex to FT4 2.89 uIU/mL (0.47-4.68)
[2023-05-27 09:51] LABS: Prostate Specific Antigen Scrn 5.38 ng/mL (0.1-4.0)
[2023-06-01 14:09] LABS: Percent Free Testosterone 3.72 % (1.50-4.20); Testosterone Free 35.43 ng/dL (5.00-21.00); Testosterone Total 952.4 ng/dL (264.0-916.0)
== END ==
PROVIDERS: PCP Family Medicine; Referring Provider Family Medicine; Visit Provider Family Medicine
DX: E03.9 Hypothyroidism, unspecified (principal); I10 Essential (primary) hypertension; U07.1 COVID-19; Z13.29 Encounter for screening for other suspected endocrine disorder; Z12.5 Encounter for screening for malignant neoplasm of prostate
CPT/HCPCS: 36415; 80053; 80061; 83036; 84402; 84403; 84443; 85025; G0103

== ENCOUNTER → 2023-06-10 08:19 | Outpatient (CLI) | payer OTHER, SELFPAY ==
[2023-06-10 09:40] LABS: Creatinine Urine Random 39.9 mg/dL
[2023-06-10 09:50] LABS: Microalbumin Urine Random < 0.6 mg/dL (0-1.6)
== END ==
PROVIDERS: PCP Family Medicine; Referring Provider Family Medicine; Visit Provider Family Medicine
DX: E03.9 Hypothyroidism, unspecified (principal); I10 Essential (primary) hypertension; U07.1 COVID-19
CPT/HCPCS: 82043; 82570

== ENCOUNTER → 2024-02-02 08:00 | Outpatient (CLI) | payer OTHER, SELFPAY ==
--- NOTE | 2024-02-02 08:02 | DI.RAD.S_ITS ---
PROCEDURE: XR CHEST 2V INDICATIONS: Cough, Hx of COPD TECHNIQUE: 2 views of the chest were acquired. COMPARISON: [facility], CT, CT CHEST W CON, 06/07/2021, 13:00. [facility], CR, XR CHEST 1V, 12/09/2021, 9:39. [facility], CR, XR CHEST 2V, 01/09/2021, 11:38. FINDINGS: Surgical changes and devices: None. Lungs and pleura: Minimal streaky opacity in the left lower lobe, similar. Prominent lung volumes. No pleural effusions or pneumothorax. Mediastinum: Mediastinal contours are normal. Heart size is normal. Bones and chest wall: No suspicious bony abnormalities. Soft tissues appear unremarkable. IMPRESSION: No consolidation demonstrated. Streaky opacity at the left lower lobe is similar. This is most consistent with atelectasis or scarring. Dictated by: Lazaro Connelly M.D. on 02/02/2024 at 9:27 Approved by: Lazaro Connelly M.D. on 02/02/2024 at 9:30
== END ==
LOC: RAD 08:01
PROVIDERS: PCP Family Medicine; Referring Provider Nurse Practitioner Family; Visit Provider Nurse Practitioner Family
DX: R05.9 Cough, unspecified (principal)
CPT/HCPCS: 71046

== ENCOUNTER → 2024-07-28 07:07 | Outpatient (CLI) | payer OTHER, SELFPAY ==
[2024-07-28 08:08] LABS: Add Manual Diff / Slide Review NO; Basophils Absolute Auto 0 /uL (0-100); Basophils Percent Auto 0.7 % (0-2); Eosinophils Absolute Auto 300 /uL (0-450); Eosinophils Percent Auto 6.2 % (2-4); Hematocrit 44.5 % (41-53); Hemoglobin 15.2 g/dL (13.5-17.5); Lymphocytes Absolute Auto 1000 /uL (1100-4500); Lymphocytes Percent Auto 19.3 % (25-40); Mean Corpuscular Volume 91.1 fL (80-100); Monocytes Absolute Auto 700 /uL (0-900); Monocytes Percent Auto 12.2 % (3-14); Neutrophils Absolute Auto 3300 /uL (1500-7000); Neutrophils Percent Auto 61.6 % (50-75); Platelet Count 193 X10^3/uL (150-400); Red Blood Cell Count 4.89 X10^6/uL (4.5-5.9); Red Cell Distribution Width 13.8 % (11.6-14.8); White Blood Cell Count 5.3 X10^3/uL (4.5-11.0)
[2024-07-28 08:23] LABS: Hemoglobin A1C% w Est Avg Glu 5.7 % (4.0-6.0)
[2024-07-28 08:28] LABS: Alanine Aminotransferase 24 IU/L (<50); Albumin 3.9 g/dL (3.5-5.0); Albumin Globulin Ratio 1.6 (1.0-2.8); Alkaline Phosphatase 59 U/L (38-126); Aspartate Aminotransferase 30 IU/L (17-59); BUN Creatinine Ratio 16.9 (6-22); Bilirubin Total 0.6 mg/dL (0.2-1.3); Blood Urea Nitrogen 15 mg/dL (9-20); Calcium 9.4 mg/dL (8.4-10.2); Carbon Dioxide 29 mmol/L (22-32); Chloride 100 mmol/L (98-107); Cholesterol 153 mg/dL (140-199); Estimated Glomerular Filt Rate > 60 mL/min (>60); Globulin 2.4 g/dL (1.7-4.1); Glucose 92 mg/dL (80-110); HDL Cholesterol 46 mg/dL (40-60); HEMOLYSIS < 15 (0-50); LDL Cholesterol Calculated 99 mg/dL (<100); Potassium 4.2 mmol/L (3.4-5.1); Sodium 135 mmol/L (137-145); Total Protein 6.3 g/dL (6.3-8.2); Triglycerides 40 mg/dL (35-150)
[2024-07-28 08:58] LABS: Prostate Specific Antigen Scrn 6.37 ng/mL (0.1-4.0)
[2024-07-28 09:00] LABS: TSH w/ Reflex to FT4 3.87 uIU/mL (0.47-4.68)
[2024-07-29 03:37] LABS: Apolipoprotein B 77 mg/dL (<90)
== END ==
PROVIDERS: PCP Family Medicine; Referring Provider Family Medicine; Visit Provider Family Medicine
DX: E03.9 Hypothyroidism, unspecified (principal); M79.7 Fibromyalgia; R73.9 Hyperglycemia, unspecified; Z12.5 Encounter for screening for malignant neoplasm of prostate; J44.9 Chronic obstructive pulmonary disease, unspecified
CPT/HCPCS: 36415; 80053; 80061; 82172; 83036; 84443; 85025; G0103

== ENCOUNTER → 2024-08-26 16:12 | Outpatient (CLI) | payer OTHER, SELFPAY ==
--- NOTE | 2024-08-26 16:13 | DI.MRI.S_ITS ---
PROCEDURE: MR PELVIC PROSTATE PROTOCOL INDICATIONS: 78 y/o M w/ elevated PSA TECHNIQUE: Coronal HASTE, axial T1 FSE with fat saturation, 3-plane nonbreath-hold T2 FSE. After the administration of contrast, dynamic axial, delayed axial and coronal VIBE or 2-D FLASH with fat saturation through the pelvis. Diffusion weighted imaging and ADC was performed. COMPARISON: None. FINDINGS: Image quality: Diffusion weighted and dynamic contrast enhanced images are diagnostic. Prostate: Gland size is 6.8 x 5.6 x 5.6 cm; ellipsoid gland volume is 111 mL. No significant foci of intrinsic T1 hyperintensity to suggest hemorrhage. Multiple BPH nodules. Median lobe hypertrophy protruding into the bladder. Lesion 1: Location: Right apex transitional zone, on axial series 4, image 15 and sagittal series 6, image 8. Size: 1.2 x 1.2 cm, (4/15). T2W signal: Hypointense. DWI signal: Heterogeneous ADC signal: Mildly hypointense. Enhancement: Yes. Extracapsular extension: Absent PI-RADS score: 3 Genitourinary system: Trabeculated appearance of the bladder wall. Distal ureters are non distended. Bowel and peritoneum: No pathologic free pelvic fluid. Inferior colon and small bowel loops are normal in caliber. Diverticulosis. Nodes and vessels: No pelvic or inguinal adenopathy by size criteria. 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 Soft tissues: No inguinal hernias. Bones: Marrow demonstrates normal overall signal, without lesions to suggest metastases. IMPRESSION: 1. Marked prostatomegaly. Multiple BPH nodules and median lobe hypertrophy. 2. No PI-RADS 4 or 5 observations identified. 3. Right apex transitional zone observation measuring 1.2 cm. PI-RADS 3. 4. No enlarged lymph nodes. 5. Incidental left internal iliac artery aneurysm measuring 4.4 cm. -Recommend vascular surgery consultation. Dictated by: Lazaro Connelly M.D. on 08/28/2024 at 11:06 Approved by: Lazaro Connelly M.D. on 08/28/2024 at 11:21
== END ==
PROVIDERS: PCP Family Medicine; Referring Provider Urology; Visit Provider Urology
DX: N40.2 Nodular prostate without lower urinary tract symptoms (principal); I72.3 Aneurysm of iliac artery; R97.20 Elevated prostate specific antigen [PSA]
CPT/HCPCS: 72197; A9579

== ENCOUNTER → 2024-09-16 07:30 | Outpatient (CLI) | payer OTHER, SELFPAY ==
--- NOTE | 2024-09-16 07:31 | DI.CT.S_ITS ---
PROCEDURE: CT ANGIO ABDOMEN PELVIS INDICATIONS: left internal iliac artery aneurysm TECHNIQUE: After the administration of intravenous contrast, 2.5 mm thick sections acquired from the diaphragm to the symphysis. 10 mm maximum-intensity projection (MIP) reformats were then acquired. For radiation dose reduction, the following was used: automated exposure control. COMPARISON: None. FINDINGS: Image Quality: Diagnostic. OTHER: Lower Chest: Mild bibasilar scarring. Liver: No solid mass. Gallbladder: No radiopaque gallstones or wall thickening. Biliary ducts: No biliary dilation. Pancreas: No ductal dilation. Spleen: Size is within normal limits. Adrenal Glands: No adrenal nodules. Kidneys and Ureters: No hydronephrosis. There is a 2 mm nonobstructing calcification within the left interpolar kidney posteriorly. No solid mass. No complex renal cystic lesion which requires follow up. Arterial tree: There is mild diffuse plaque causing mild diffuse stenosis of the abdominal aorta. No evidence of aortic dissection nor aneurysm. Moderate origin stenosis of the celiac artery. There is moderate fusiform dilatation of the celiac artery, measuring 15 mm short axis. There is a chronic appearing dissection flap within the celiac artery. Superior mesenteric artery is patent. Inferior mesenteric artery is patent. Single bilateral renal arteries are present which demonstrate mild origin stenoses. Bilateral common, internal, and external iliac arteries are patent. There is a left internal iliac artery aneurysm measuring 43 mm, with moderate mural thrombus. Stomach and Bowel: Normal colonic caliber, without significant wall thickening. Appendix is not seen. Peritoneum: No abnormal intraperitoneal fluid. No free air. Ventral Wall: No hernia. Abdominal Nodes: No retroperitoneal or mesenteric adenopathy by size criteria. Vessels: Aorta and inferior vena cava are normal in size. PELVIS: Pelvic Organs: Prostate is enlarged. Bladder: Unremarkable. Pelvic Nodes: No enlarged lymph nodes. Miscellaneous: No inguinal hernias are seen. Bones: No aggressive osseous abnormality. IMPRESSION: 1. Left internal iliac artery aneurysm. 2. 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 3. Prostate enlargement. Correlation with PSA values recommended. 4. Nonobstructing left renal calculus. Dictated by: Shelia Sin M.D. on 09/16/2024 at 9:20 Approved by: Shelia Sin M.D. on 09/16/2024 at 9:26
[2024-09-16 08:02] LABS: Estimated Glomerular Filt Rate > 60 mL/min (>60)
== END ==
PROVIDERS: Radiology Diagnostic Radiology; PCP Family Medicine; Referring Provider Urology; Visit Provider Urology
DX: I72.3 Aneurysm of iliac artery (principal); I77.79 Dissection of other specified artery; I70.0 Atherosclerosis of aorta; N20.0 Calculus of kidney; N40.0 Benign prostatic hyperplasia without lower urinary tract symptoms
CPT/HCPCS: 36415; 74174; 82565; Q9967

== ENCOUNTER → 2025-01-25 12:47 | Outpatient (CLI) | payer OTHER, SELFPAY ==
[2025-01-25 14:38] LABS: Prostate Specific Antigen 3.78 ng/mL (0.10-4.00)
== END ==
PROVIDERS: PCP Family Medicine; Referring Provider Family Medicine; Visit Provider Urology
DX: R97.20 Elevated prostate specific antigen [PSA] (principal)
CPT/HCPCS: 36415; 84153

== ENCOUNTER → 2025-03-14 08:00 | Outpatient (CLI) | payer OTHER, SELFPAY ==
--- NOTE | 2025-03-14 08:01 | DI.RAD.S_ITS ---
PROCEDURE: XR CHEST 2V INDICATIONS: Cough TECHNIQUE: 2 views of the chest were acquired. COMPARISON: [facility], CR, XR CHEST 2V, 02/02/2024, 8:05. FINDINGS: New mild bilateral perihilar and lower lobe peribronchial thickening, some of which may be related expiratory result; however, bronchitis, viral infection, asthma or other process should be considered. Mild bibasilar subsegmental atelectasis and linear scarring similar to the prior exam. Mild calcifications of the aortic arch unchanged. Degenerative changes of the thoracic spine unchanged. No pneumothorax, no pleural effusion, no lobar consolidation. IMPRESSION: New peribronchial thickening as discussed above. Follow-up suggested. If symptoms persist or worsen, CT chest could be performed. Dictated by: Chay Melissa M.D. on 03/14/2025 at 12:44 Approved by: Chay Melissa M.D. on 03/14/2025 at 13:04
== END ==
PROVIDERS: PCP Family Medicine; Referring Provider Nurse Practitioner Family; Visit Provider Nurse Practitioner Family
DX: R05.9 Cough, unspecified (principal); I70.0 Atherosclerosis of aorta; M47.814 Spondylosis without myelopathy or radiculopathy, thoracic region
CPT/HCPCS: 71046

== ENCOUNTER → 2025-04-15 11:31 | Outpatient (CLI) | payer MEDICARE, SELFPAY ==
--- NOTE | 2025-04-15 11:33 | DI.RAD.S_ITS ---
PROCEDURE: XR CHEST 2V INDICATIONS: Acute cough, crackles TECHNIQUE: 2 views of the chest were acquired. COMPARISON: [facility], CR, XR CHEST 2V, 03/14/2025, 8:09. FINDINGS: Surgical changes and devices: None. Lungs and pleura: Stable chronic appearing left basilar pulmonary markings and/or atelectasis. Lungs are otherwise clear. No pleural effusions or pneumothorax. Mediastinum: Mediastinal contours are normal. Heart size is normal. Bones and chest wall: No suspicious bony abnormalities. Soft tissues appear unremarkable. IMPRESSION: No acute cardiopulmonary abnormality is seen. Stable chronic appearing left basilar pulmonary markings and/or atelectasis. Dictated by: Bhavin Joiner M.D. on 04/17/2025 at 17:51 Approved by: Bhavin Joiner M.D. on 04/17/2025 at 17:52
[2025-04-15 12:17] LABS: Add Manual Diff / Slide Review NO; Hematocrit 45.5 % (41-53); Hemoglobin 15.7 g/dL (13.5-17.5); Lymphocytes Absolute Auto 1000 /uL (1100-4500); Mean Corpuscular HGB Conc 34.5 % (30-36); Mean Corpuscular Hemoglobin 31.4 PG (26-34); Mean Corpuscular Volume 91.0 fL (80-100); Platelet Count 216 X10^3/uL (150-400)
[2025-04-15 12:34] LABS: Appearance Urine UA CLEAR; Bilirubin Urine UA NEGATIVE (NEGATIVE); Color Urine UA YELLOW; Glucose Urine UA NEGATIVE (Negative); Ketones Urine UA 1+ (NEGATIVE); Leukocyte Esterase Urine UA NEGATIVE (NEGATIVE); Nitrite Urine UA NEGATIVE (Negative); Occult Blood Urine UA NEGATIVE (Negative); Protein Urine UA NEGATIVE (Negative); Specific Gravity Urine UA 1.010 (1.000-1.035); Urobilinogen Urine UA 0.2 E.U./dL (0.2); pH Urine UA 6.5 (4.5-8.0)
[2025-04-15 12:45] LABS: Culture Indicated Urine Cult Not Indicated
[2025-04-15 12:47] LABS: Alanine Aminotransferase 22 IU/L (<50); Albumin 4.3 g/dL (3.5-5.0); Albumin Globulin Ratio 1.5 (1.0-2.8); Alkaline Phosphatase 65 U/L (38-126); Blood Urea Nitrogen 17 mg/dL (9-20); Calcium 9.2 mg/dL (8.4-10.2); Carbon Dioxide 26 mmol/L (22-32); Chloride 100 mmol/L (98-107); Estimated Glomerular Filt Rate 59 mL/min (>60); Globulin 2.8 g/dL (1.7-4.1); Glucose 94 mg/dL (70-99); HEMOLYSIS < 15 (0-50); Potassium 4.2 mmol/L (3.4-5.1); Sodium 136 mmol/L (137-145); Total Protein 7.1 g/dL (6.3-8.2)
[2025-04-15 12:54] LABS: NT-proBNP (BNP-Adult 18+) 161 pg/mL (<450)
[2025-04-15 13:19] LABS: TSH w/ Reflex to FT4 3.33 uIU/mL (0.47-4.68)
== END ==
LOC: LAB 11:33
PROVIDERS: PCP Family Medicine; Referring Provider Family Medicine; Visit Provider Family Medicine
DX: R05.1 Acute cough (principal); R05.9 Cough, unspecified; N20.0 Calculus of kidney; R91.8 Other nonspecific abnormal finding of lung field
CPT/HCPCS: 36415; 71046; 80053; 81001; 83880; 84443; 85025

== ENCOUNTER → 2025-08-06 10:16 | Outpatient (CLI) | payer MEDICARE, OTHER, SELFPAY ==
[2025-08-06 12:11] LABS: Prostate Specific Antigen 4.35 ng/mL (0.10-4.00)
[2025-08-06 15:18] LABS: Clostridium Difficile Tox PCR Negative for C. diff (Negative)
[2025-08-08 10:12] LABS: E coli Shiga Toxin EIA Negative (Negative)
[2025-08-08 13:41] LABS: Salmonella/Shigella Screen Final report (.)
== END ==
PROVIDERS: Urology; PCP Family Medicine; Referring Provider Chiropractor; Visit Provider Chiropractor
DX: N40.0 Benign prostatic hyperplasia without lower urinary tract symptoms (principal); R97.20 Elevated prostate specific antigen [PSA]; R19.7 Diarrhea, unspecified
CPT/HCPCS: 36415; 84153; 87045; 87493